=== PATIENT | female | born 1945 ===

== ENCOUNTER → 2023-09-20 12:19 | Outpatient (REF) | payer MEDICARE, OTHER, SELFPAY ==
[2023-09-20 13:00] LABS: % Basophils 0.5 % (0-2); % Eosinophils 2.6 % (0-6); % Immature Granulocytes 0.3 % (0-0.5); % Lymphocytes 23.3 % (20.5-51.1); % Monocytes 8.9 % (1.7-9.3); % Neutrophils 64.4 % (42.2-75.2); Absolute Eosinophils 0.2 10^3/uL (0-0.7); Absolute Lymphocytes 1.3 10^3/uL (1.2-3.4); Absolute Monocytes 0.5 10^3/uL (0.1-0.6); Absolute Neutrophils 3.7 10^3/uL (1.4-6.5); Hematocrit 34.1 % (37.0-47.0); Hemoglobin 11.2 g/dL (12.0-16.0); Mean Corp Hgb Conc. 32.8 g/dL (33.0-37.0); Mean Corpuscular Hgb 27.7 pg (27.0-31.0); Mean Corpuscular Volume 84.2 fL (81.0-99.0); Mean Platelet Volume 11.5 fL (7.4-10.4); Nucleated Red Blood Cells % 0 %; Platelet Count 191 10^3/uL (130-400); Red Blood Cell Count 4.05 10^6/uL (4.20-5.40); Red Cell Dist. Width 14.8 % (11.5-14.5); White Blood Cell Count 5.7 10^3/uL (4.8-10.8)
[2023-09-20 13:15] LABS: ALT (SGPT) 10 U/L (0-35); AST (SGOT) 17 U/L (14-36); Albumin 2.9 g/dl (3.5-5.0); Alkaline Phosphatase 81 U/L (38-126); Blood Urea Nitrogen 27 mg/dl (7-17); Calcium 8.9 mg/dl (8.4-10.2); Carbon Dioxide 28 mmol/L (22-30); Chloride 99 mmol/L (98-107); Glucose 296 mg/dl (70-99); HDL Cholesterol 48 mg/dl; LDL Cholesterol, Calculated 116 mg/dl; Potassium 4.1 mmol/L (3.5-5.1); Sodium 135 mmol/L (135-145); Total Bilirubin 0.4 mg/dl (0.2-1.3); Total Cholesterol 190 mg/dl (50-199); Total Protein 5.2 g/dl (6.3-8.2); Triglyceride 134 mg/dl (10-149); Very Low Density Lipoprotein 26 mg/dl (0-30); eGFR > 60.00
[2023-09-20 14:29] LABS: Glycohemoglobin (HgbA1c) 8.2 % (4.0-5.6)
== END ==
LOC: OLABN 12:19
PROVIDERS: ATTENDING PHYSICIAN Student in an Organized Health Care Education/Training Program
DX: I35.0 Nonrheumatic aortic (valve) stenosis (principal); E11.9 Type 2 diabetes mellitus without complications; E78.5 Hyperlipidemia, unspecified
CPT/HCPCS: 36415; 80053; 80061; 83036; 85025

== ENCOUNTER → 2023-10-01 12:36 | Outpatient (REF) | payer MEDICARE, OTHER, SELFPAY ==
[2023-10-01 13:01] LABS: Urine Albumin Trace (Neg - Trace); Urine Bilirubin Negative (Negative); Urine Character Slightly Cloudy (Clear); Urine Color Yellow; Urine Glucose 3+ (Negative); Urine Ketone Negative (Negative); Urine Leukocyte 2+ (Negative); Urine Nitrite Positive (Negative); Urine Occult Blood 1+ (Negative); Urine Urobilinogen Negative (Neg - 1+)
[2023-10-01 13:13] LABS: Urine Bacteria Moderate (Negative); Urine Red Blood Cell 0-2 /HPF (0-2); Urine White Cell 50-60 /HPF (0-5)
== END ==
LOC: OLABN 12:36
PROVIDERS: ATTENDING PHYSICIAN Student in an Organized Health Care Education/Training Program
DX: R82.90 Unspecified abnormal findings in urine (principal)
CPT/HCPCS: 81003; 81015; 87077; 87086; 87186

== ENCOUNTER → 2023-10-14 09:17 | Outpatient (REF) | payer MEDICARE, OTHER, SELFPAY ==
[2023-10-14 10:26] LABS: Urine Albumin Trace (Neg - Trace); Urine Bilirubin Negative (Negative); Urine Character Slightly Cloudy (Clear); Urine Color Yellow; Urine Glucose 3+ (Negative); Urine Ketone Negative (Negative); Urine Leukocyte 2+ (Negative); Urine Nitrite Negative (Negative); Urine Occult Blood 2+ (Negative); Urine Urobilinogen Negative (Neg - 1+)
[2023-10-14 10:45] LABS: Urine Bacteria Few (Negative); Urine White Cell 40-50 /HPF (0-5)
== END ==
LOC: OLABN 09:17
PROVIDERS: ATTENDING PHYSICIAN Student in an Organized Health Care Education/Training Program
DX: R82.90 Unspecified abnormal findings in urine (principal)
CPT/HCPCS: 81003; 81015; 87077; 87086; 87186

== ENCOUNTER → 2023-10-21 12:44 | Outpatient (REF) | payer MEDICARE, OTHER, SELFPAY ==
[2023-10-21 13:49] LABS: % Basophils 1.1 % (0-2); % Eosinophils 2.5 % (0-6); % Immature Granulocytes 0.4 % (0-0.5); % Lymphocytes 26.4 % (20.5-51.1); % Monocytes 15.9 % (1.7-9.3); % Neutrophils 53.7 % (42.2-75.2); Absolute Basophils 0.1 10^3/uL (0-0.2); Absolute Eosinophils 0.1 10^3/uL (0-0.7); Absolute Lymphocytes 1.3 10^3/uL (1.2-3.4); Absolute Monocytes 0.8 10^3/uL (0.1-0.6); Absolute Neutrophils 2.5 10^3/uL (1.4-6.5); Hematocrit 35.3 % (37.0-47.0); Hemoglobin 11.8 g/dL (12.0-16.0); Mean Corp Hgb Conc. 33.4 g/dL (33.0-37.0); Mean Corpuscular Hgb 27.4 pg (27.0-31.0); Mean Corpuscular Volume 81.9 fL (81.0-99.0); Mean Platelet Volume 11.3 fL (7.4-10.4); Nucleated Red Blood Cells % 0 %; Platelet Count 253 10^3/uL (130-400); Red Blood Cell Count 4.31 10^6/uL (4.20-5.40); Red Cell Dist. Width 14.9 % (11.5-14.5); White Blood Cell Count 4.7 10^3/uL (4.8-10.8)
[2023-10-21 14:27] LABS: Blood Urea Nitrogen 18 mg/dl (7-17); Calcium 8.6 mg/dl (8.4-10.2); Carbon Dioxide 25 mmol/L (22-30); Chloride 98 mmol/L (98-107); Glucose 384 mg/dl (70-99); Potassium 3.8 mmol/L (3.5-5.1); Sodium 128 mmol/L (135-145); eGFR > 60.00
== END ==
LOC: OLABN 12:44
PROVIDERS: ATTENDING PHYSICIAN Student in an Organized Health Care Education/Training Program
DX: I48.0 Paroxysmal atrial fibrillation (principal); N18.2 Chronic kidney disease, stage 2 (mild)
CPT/HCPCS: 36415; 80048; 85025

== ENCOUNTER → 2023-11-08 09:03 | Outpatient (REF) | payer MEDICARE, OTHER, SELFPAY ==
[2023-11-08 10:42] LABS: Blood Urea Nitrogen 19 mg/dl (7-17); Calcium 9.2 mg/dl (8.4-10.2); Carbon Dioxide 23 mmol/L (22-30); Chloride 106 mmol/L (98-107); Glucose 172 mg/dl (70-99); Potassium 4.2 mmol/L (3.5-5.1); Sodium 134 mmol/L (135-145); eGFR > 60.00
== END ==
LOC: OLABN 09:03
PROVIDERS: ATTENDING PHYSICIAN Student in an Organized Health Care Education/Training Program
DX: E87.1 Hypo-osmolality and hyponatremia (principal)
CPT/HCPCS: 36415; 80048

== ENCOUNTER → 2023-12-20 11:40 | Outpatient (REF) | payer MEDICARE, OTHER, SELFPAY ==
[2023-12-20 12:34] LABS: Blood Urea Nitrogen 12 mg/dl (7-17); Calcium 8.3 mg/dl (8.4-10.2); Carbon Dioxide 23 mmol/L (22-30); Chloride 104 mmol/L (98-107); Glucose 179 mg/dl (70-99); Potassium 3.1 mmol/L (3.5-5.1); Sodium 134 mmol/L (135-145); eGFR > 60.00
[2023-12-20 12:51] LABS: Glycohemoglobin (HgbA1c) 8.1 % (4.0-5.6)
== END ==
LOC: OLABN 11:40
PROVIDERS: ATTENDING PHYSICIAN Student in an Organized Health Care Education/Training Program
DX: E78.1 Pure hyperglyceridemia (principal); E11.40 Type 2 diabetes mellitus with diabetic neuropathy, unspecified
CPT/HCPCS: 36415; 80048; 83036

== ENCOUNTER → 2023-12-27 11:55 | Outpatient (REF) | payer MEDICARE, OTHER, SELFPAY ==
[2023-12-27 13:11] LABS: Blood Urea Nitrogen 19 mg/dl (7-17); Calcium 8.9 mg/dl (8.4-10.2); Carbon Dioxide 20 mmol/L (22-30); Chloride 106 mmol/L (98-107); Glucose 147 mg/dl (70-99); Potassium 4.1 mmol/L (3.5-5.1); Sodium 139 mmol/L (135-145); eGFR > 60.00
== END ==
LOC: OLABN 11:55
PROVIDERS: ATTENDING PHYSICIAN Student in an Organized Health Care Education/Training Program
DX: E87.1 Hypo-osmolality and hyponatremia (principal)
CPT/HCPCS: 36415; 80048

== ENCOUNTER → 2024-03-06 10:50 | Outpatient (REF) | payer MEDICARE, OTHER, SELFPAY ==
[2024-03-06 12:23] LABS: ALT (SGPT) 18 U/L (0-35); AST (SGOT) 56 U/L (14-36); Albumin 2.6 g/dl (3.5-5.0); Alkaline Phosphatase 240 U/L (38-126); Blood Urea Nitrogen 26 mg/dl (7-17); Calcium 8.7 mg/dl (8.4-10.2); Carbon Dioxide 16 mmol/L (22-30); Chloride 110 mmol/L (98-107); Glucose 103 mg/dl (70-99); Potassium 4.9 mmol/L (3.5-5.1); Sodium 135 mmol/L (135-145); Total Bilirubin 0.8 mg/dl (0.2-1.3); Total Protein 5.4 g/dl (6.3-8.2); eGFR > 60.00
== END ==
LOC: OLABN 10:50
PROVIDERS: ATTENDING PHYSICIAN Student in an Organized Health Care Education/Training Program
DX: Z51.81 Encounter for therapeutic drug level monitoring (principal)
CPT/HCPCS: 36415; 80053

== ENCOUNTER → 2024-03-13 13:13 | Outpatient (REF) | payer MEDICARE, OTHER, SELFPAY ==
[2024-03-13 14:12] LABS: ALT (SGPT) 20 U/L (0-35); AST (SGOT) 55 U/L (14-36); Albumin 2.7 g/dl (3.5-5.0); Alkaline Phosphatase 243 U/L (38-126); Blood Urea Nitrogen 21 mg/dl (7-17); Calcium 8.7 mg/dl (8.4-10.2); Carbon Dioxide 16 mmol/L (22-30); Chloride 110 mmol/L (98-107); Glucose 133 mg/dl (70-99); Potassium 4.4 mmol/L (3.5-5.1); Sodium 134 mmol/L (135-145); Total Protein 5.5 g/dl (6.3-8.2); eGFR > 60.00
== END ==
LOC: OLABN 13:13
PROVIDERS: ATTENDING PHYSICIAN Student in an Organized Health Care Education/Training Program
DX: Z51.81 Encounter for therapeutic drug level monitoring (principal)
CPT/HCPCS: 36415; 80053

== ENCOUNTER → 2024-03-17 13:00 | Outpatient (REF) | payer MEDICARE, OTHER, SELFPAY ==
[2024-03-17 14:09] LABS: ALT (SGPT) 17 U/L (0-35); AST (SGOT) 48 U/L (14-36); Albumin 2.6 g/dl (3.5-5.0); Alkaline Phosphatase 191 U/L (38-126); Direct Bilirubin 0.4 mg/dl (0.0-0.4); GGTP 278 U/L (12-43); Total Bilirubin 0.8 mg/dl (0.2-1.3); Total Protein 5.3 g/dl (6.3-8.2)
== END ==
LOC: OLABN 13:00
PROVIDERS: ATTENDING PHYSICIAN Student in an Organized Health Care Education/Training Program
DX: R74.8 Abnormal levels of other serum enzymes (principal); R74.01 Elevation of levels of liver transaminase levels
CPT/HCPCS: 36415; 80076; 82977

== ENCOUNTER 2024-03-20 20:25 | Inpatient (IN) | payer MEDICARE, OTHER, SELFPAY ==
[2024-03-20] VITALS (8 sets, daily range): BP systolic 98–134; BP diastolic 52–73; BMI 21.0; BMI 21.7
[2024-03-20 14:46] LABS: % Basophils 0.7 % (0-2); % Eosinophils 0.7 % (0-6); % Immature Granulocytes 0.5 % (0-0.5); % Lymphocytes 10.4 % (20.5-51.1); % Monocytes 10.6 % (1.7-9.3); % Neutrophils 77.1 % (42.2-75.2); Absolute Lymphocytes 0.6 10^3/uL (1.2-3.4); Absolute Monocytes 0.6 10^3/uL (0.1-0.6); Absolute Neutrophils 4.5 10^3/uL (1.4-6.5); Hematocrit 41.9 % (37.0-47.0); Hemoglobin 13.4 g/dL (12.0-16.0); Mean Corpuscular Hgb 28.8 pg (27.0-31.0); Mean Corpuscular Volume 90.1 fL (81.0-99.0); Mean Platelet Volume 9.8 fL (7.4-10.4); Nucleated Red Blood Cells % 0 %; Platelet Count 218 10^3/uL (130-400); Red Blood Cell Count 4.65 10^6/uL (4.20-5.40); Red Cell Dist. Width 18.4 % (11.5-14.5); White Blood Cell Count 5.8 10^3/uL (4.8-10.8)
[2024-03-20 15:08] LABS: ALT (SGPT) 17 U/L (0-35); AST (SGOT) 51 U/L (14-36); Albumin 2.8 g/dl (3.5-5.0); Alkaline Phosphatase 181 U/L (38-126); Blood Urea Nitrogen 23 mg/dl (7-17); Calcium 8.4 mg/dl (8.4-10.2); Carbon Dioxide 18 mmol/L (22-30); Chloride 109 mmol/L (98-107); Estimated Creatinine Clearance 42 ml/min; Glucose 217 mg/dl (70-99); Potassium 4.4 mmol/L (3.5-5.1); Sodium 136 mmol/L (135-145); Total Bilirubin 1.2 mg/dl (0.2-1.3); Total Protein 5.9 g/dl (6.3-8.2); eGFR > 60.00
--- NOTE | 2024-03-20 16:39 | ED.GENMED ---
History of Present Illness
General
Chief Complaint: Abdominal Symptoms
Source: patient, family and penitentiary
Exam Limitations: none
Time Seen by Provider: 03/20/24 16:00
Nursing documentation reviewed up to this point in time: agreed with
History of Present Illness
History of Present Illness:
Patient to ED with complaint of abdominal pain (chronic), abdominal swelling. Daughter states swelling increased over the weekend. SHe had an abdominal US today at [facility] which reveals ascites, possible liver mass. Sent to ED for eval.
Past History
Past History
ED Past Medical History: Arrthythmia (afib)
ED Past Surgical History: Appendectomy, Cardiac (loop recorder, watchman) and Other (IVC filter)
Review of Systems
Review of Systems
Allergies reviewed?: Yes
All Other Systems: ROS reviewed and negative except as documented in HPI and ROS
Constitutional: Reports fatigue
EENT: Reports no symptoms
Respiratory: Reports no symptoms
Cardiac: Reports no symptoms
ABD/GI: Reports abdominal pain
: Reports no symptoms
Musculoskeletal: Reports no symptoms
Skin: Reports no symptoms
Neurological: Reports weakness
Psychiatric: Reports no symptoms
Phy Exam
General Physical Exam
General Presentation: mild distress
General age: appears older than age
General Skin: warm and dry
General Habitus: failure to thrive and frail
General Mental: alert
Cardiovascular Exam
Cardiovascular Exam: regular rate/rhythm
Pulmonary Exam
Pulmonary Exam: lungs clear and no respiratory distress
Gastrointestinal Exam
Gastrointestinal Exam: normal bowel sounds, soft, no pulsatile mass, no cva tenderness and ascites
Palpation: generalized: Mild tenderness
Musculoskeletal Exam
Musculoskeletal Exam: full ROM and neuro vasc intact
Skin Exam
Skin Exam: normal color and warm/dry
Psychiatric Exam
Psychiatric Exam: normal mood/affect
Course
Orders/Labs/Results
Orders:
Orders
03/20/24 14:20
Electrocardiogram (*1) Urgent
Reason for Study: Chest Pain
Cardiac Monitoring- Treatment ONCE
EKG- Treatment ONCE
IV Insert/Care/Rem.- Treatment PRN
03/20/24 14:42
Complete Blood Count/With Diff Urgent
Comprehensive Metabolic Panel Urgent
03/20/24 16:35
CT Abd/pelvis W Iv Cont Urgent
Comment:
Reason For Exam: abdominal pain, swelling
Urinalysis Reflex To Culture Urgent
03/20/24 19:02
Admit/Transfer Patient As Directed
Co-Sign Provider:
Level of Care: Inpatient admission
Assign to:: Medical/Surgical
Physician / Group: aliyah
Diagnosis: metastatic ascites
Reason for Hospitalization: metastatic ascites
Expected length of stay greater than two midnights?: Yes
ELOS- Estimated Length of Stay in days: 2
I certify the patient meets the requirements for IP care: Yes
PRN Pain Medication Management As Directed
May give lesser potent ordered pain med per pt: Yes
preference::
Protocol:: Medication orders for pain may be administered in a
manner that supports deferring to patient preference
when the pt is:
- Requesting an ordered lesser potent pain medication.
Least to most potent pain medications are defined
as: acetaminophen < NSAID < tramadol < opioids
(morphine, oxycodone, hydromorphone).
- Requesting a lesser dose of the same medication IF
ORDERED.
- Requesting a less intrusive route of administration
if both routes are prescribed by the provider (PO <
IV).
03/20/24 19:03
Code Status As Directed
Resuscitation Status: Do not resuscitate
Reached after discussion with pt or family/Healthcare POA: Yes
DNR Bracelet Application ONCE
Abnormal Lab Results
03/20/24
14:42
MCHC 32.0 L g/dL
(33.0-37.0)
RDW 18.4 H %
(11.5-14.5)
Absolute Lymphs (auto) 0.6 L 10^3/uL
(1.2-3.4)
Neutrophils % 77.1 H %
(42.2-75.2)
Lymphocytes % 10.4 L %
(20.5-51.1)
Monocytes % 10.6 H %
(1.7-9.3)
Chloride 109 H mmol/L
(98-107)
Carbon Dioxide 18 L mmol/L
(22-30)
BUN 23 H mg/dl
(7-17)
Glucose 217 H mg/dl
(70-99)
AST 51 H U/L
(14-36)
Alkaline Phosphatase 181 H U/L
(38-126)
Total Protein 5.9 L g/dl
(6.3-8.2)
Albumin 2.8 L g/dl
(3.5-5.0)
03/20/24 14:42
03/20/24 14:42
Vital Signs
Initial and Last Documented VS:
Initial Vital Signs
Temp Pulse Resp BP Pulse Ox
99.4 F 89 14 121/69 97
03/20/24 14:25 03/20/24 14:25 03/20/24 14:25 03/20/24 14:25 03/20/24 14:25
Last Documented Vital Signs
Temp Pulse Resp BP Pulse Ox
99.4 F 88 17 111/59 98
03/20/24 14:25 03/20/24 18:15 03/20/24 18:15 03/20/24 18:00 03/20/24 18:15
*Radiology
Radiology exam reviewed: radiology read reviewed
*Pulse Oximetry
Patient hypoxic: no
*Critical Care Note
Total Time (30-74mins, 75-104mins- exclusive of procedures): Not Applicable
ED Attending Note
-
Portions of this chart may have been created with voice recognition software.� Occasional wrong word or��sound alike� substitutions may have occurred due to the inherent limitations of voice recognition software.
Discharge Plan
Departure
Patient Disposition: Admit
Date of Disposition: 03/20/24
Time of Disposition: 18:26
Presentation/result/management discussed w/ accepting MD/DO: Hospitalist
Patient with high blood pressure during this ER visit?: No
Condition: Fair
Covid-19: Not Applicable
Discharge Problem:
Failure to thrive, Abdominal ascites, Liver mass
Prescriptions:
No Action
acetaminophen 325 mg Tablet
650 mg PO Q4HPRN PRN (Reason: mild pain/fever >100.4)
lidocaine 4 % Adhesive Patch,Medicated
1 patch TOPICAL DAILY
sennosides-docusate sodium 8.6-50 mg Tablet
1 tab-cap PO DAILY
magnesium hydroxide [Milk of Magnesia] 400 mg/5 mL Suspension
400 mg PO HSPRN PRN (Reason: constipation)
bisacodyl 10 mg Suppository
10 mg WI DAILYPRN PRN (Reason: 3 days no bm, mom ineffective)
gabapentin 300 mg Capsule
300 mg PO HS
mirtazapine 15 mg Tablet
15 mg PO HS
simethicone 80 mg Tablet,Chewable
80 mg PO Q8HPRN PRN (Reason: gas)
sodium chloride 1,000 mg Tablet,Soluble
1,000 mg PO DAILY
Referrals:
UNKNOWN - PT DOES,NOT KNOW [Family Provider] -
Interventions
Interventions:
*Risk Screen - Suicide Last Done: 03/20/24 14:22
*General Assessment Last Done: 03/20/24 14:22
*Neglect/Abuse Screening Last Done: 03/20/24 14:22
ED- Fall Risk Assessment Last Done: 03/20/24 14:22
*ED COVID-19 Vaccine History Last Done: 03/20/24 14:22
RV-Aazsdj-Ifmqcxbcgj Assessment Last Done: 03/20/24 15:00
Discharge Date and Time
Print Language: LEBANESE
--- NOTE | 2024-03-20 17:08 | EDRN ---
CT called and said IV #22 in L wrist is okay for CT of abd/pelvis as it is not and CT angio.
--- NOTE | 2024-03-20 19:05 | HPS.HSE ---
Family Physician
-
Family Physician: NOT KNOW UNKNOWN - PT DOES
Chief Complaint
-
abdominal pain
History of Present Illness
78-year-old female past medical history of paroxysmal atrial fibrillation status post Watchman/loop recorder not on anticoagulation, IVC filter, breast cancer 2016 status post lumpectomy, chemotherapy/radiation, ischemic/hemorrhagic CVAs, type 2
diabetes, CKD, anxiety/depression, hyponatremia, presenting with abdominal discomfort for the past 2 weeks as well as increased abdominal distention since yesterday. No nausea or vomiting. No diarrhea. No fevers or chills. She has been having
intermittent chest pains. Denies shortness of breath.
Denies smoking alcohol use.
Mother had breast cancer.
Medical History
Past Medical History
Past Medical History: Reports Other (paroxysmal atrial fibrillation status post Watchman/loop recorder not on anticoagulation, IVC filter, breast cancer 2016 status post lumpectomy, chemotherapy/radiation, ischemic/hemorrhagic CVAs, type 2 diabetes,
CKD, anxiety/depression, hyponatremia)
Past Surgical History: Reports Appendectomy and Other (IVC filter, loop recorder )
Social History
Tobacco: Non-smoker
Alcohol: None
Drug: None
Family History
Family History: Not pertinent
Allergies / Home Medications
Allergies reflects when Allergies were last updated in [facility].
Home Medications with original date entered in [facility]
Allergy/Medication List:
Allergies
Allergy/AdvReac Type Severity Reaction Status Date / Time
canagliflozin Allergy Unknown Verified 03/20/24 14:21
Home Medications
acetaminophen 325 mg tablet 650 mg PO Q4HPRN PRN mild pain/fever >100.4 03/20/24
bisacodyl 10 mg rectal suppository 10 mg NE DAILYPRN PRN 3 days no bm, mom ineffective 03/20/24
gabapentin 300 mg capsule 300 mg PO HS 03/20/24
lidocaine 4 % topical patch 1 patch topical DAILY lower back 03/20/24
magnesium hydroxide 400 mg/5 mL oral suspension (Milk of Magnesia) 400 mg PO HSPRN PRN constipation 03/20/24
mirtazapine 15 mg tablet 15 mg PO HS 03/20/24
sennosides 8.6 mg-docusate sodium 50 mg tablet 1 tab-cap PO DAILY 03/20/24
simethicone 80 mg chewable tablet 80 mg PO Q8HPRN PRN gas 03/20/24
sodium chloride 1,000 mg soluble tablet 1,000 mg PO DAILY 03/20/24
Review of Systems
-
History Source: Patient
A 12 point ROS was completed and negative except as noted: Yes
Constitutional: Reports No Symptoms
EENT: Reports No Symptoms
Respiratory: Reports No Symptoms
Cardiac: Reports No Symptoms
Abdomen/GI: Reports See HPI
: Reports No Symptoms
Musculoskeletal: Reports No Symptoms
Skin: Reports No Symptoms
Neurological: Reports No Symptoms
Endocrine: Reports No Symptoms
Hematologic/Lymphatic: Reports No Symptoms
Psych: Reports No Symptoms
Physical Exam
Vital Signs
Vital Signs
Temp Pulse Resp BP Pulse Ox
99.4 F 88 17 111/59 98
03/20/24 14:25 03/20/24 18:15 03/20/24 18:15 03/20/24 18:00 03/20/24 18:15
Physical Exam
General: Well Developed, Well Nourished and No Apparent Distress
HEENT: NormoCephalic, Moist mucous membranes and Atraumatic
Respiratory: Clear
Cardiac: S1/S2 and Regular Rhythm; No Murmur or Rub
GI: Soft, Normal Bowel Sounds, Tender and Distended; No Organomegaly
Rectal: Deferred by Provider
Musculoskeletal: No Clubbing, No Cyanosis and No Edema
Skin: No Rash
Neuro: Nonfocal/grossly intact
Laboratory Results
-
03/20/24 14:42
03/20/24 14:42
Laboratory Results
Total Bilirubin 1.2 mg/dl (0.2-1.3) 03/20/24 14:42
AST 51 U/L (14-36) H 03/20/24 14:42
ALT 17 U/L (0-35) 03/20/24 14:42
Alkaline Phosphatase 181 U/L (38-126) H 03/20/24 14:42
Data Reviewed
-
Lab Data: Labs Reviewed by me
Old Records: Reviewed
Impression/Plan
-
IMPRESSION:
PLAN:
# Symptomatic ascites secondary to newly discovered liver malignancy versus metastases
-CT abdomen pelvis shows innumerable scattered low-attenuation lesions throughout the liver suspicious for malignancy possibly metastatic
-IR consulted for paracentesis
-GI consulted
# Splenic infarct versus mass
-Possibly infarct from atrial fibrillation since not on anticoagulation
Paroxysmal atrial fibrillation status post watchman/loop recorder
IVC filter
Breast cancer 2016 status post lumpectomy/chemotherapy/radiation
History of ischemic/hemorrhagic CVAs
Type 2 diabetes
-Insulin sliding scale
CKD
-Renal function at baseline
Anxiety/depression
-Continue mirtazapine
Hyponatremia
-Continue sodium chloride tablet
DNR/DNI
DVT prophylaxis- heparin
Regular diet
--- NOTE | 2024-03-20 19:28 | EDRN ---
Report received, patient given water, family at bedside waiting on bed
--- NOTE | 2024-03-20 20:27 | EDRN ---
Report sent to the floor
--- NOTE | 2024-03-20 21:15 | PTCARENOTE ---
Patient arrived to unit via stretcher accompanied by ED PCT. Transferred from stretcher to bed without difficulty. Nursing assessment completed at this time, see documentation. Oriented to facility and room, call wong within reach and instructed on
use, bed alarmed. VSS, continue with current care plan.
[2024-03-20 21:18] LABS: Glucose - Point of Care 126 mg/dl (70-99)
[2024-03-20] MEDS: REMERON 15 MG PO (21:49)
[2024-03-20] MEDS: NEURONTIN 300 MG PO (21:49)
[2024-03-20] MEDS: HEPARIN 5000 UNITS SC (21:49)
[2024-03-21 07:42] LABS: Glucose - Point of Care 116 mg/dl (70-99)
--- NOTE | 2024-03-21 07:42 | W.PN.HOSP.TC ---
Today's Communication/Plan
-
see bold
Assessment / Plan
Assessment / Plan
Gen: NAD, Awake and alert, appears chronically ill
Eyes: EOMI, PERRLA, no scleral icterus.
Neck: supple.
CV: RRR, +S1/S2, no m/r/g.
Resp: CTAB, no rales, wheezes, or rhonchi.
Abd: +BS, soft, mild TTP, mod distention with ascites
Skin: No rashes.
Neuro: CN 2-12 intact, non-focal.
Psych: Normal mood and affect.
Symptomatic ascites secondary to newly discovered liver malignancy versus metastases:
-CT abdomen pelvis shows innumerable scattered low-attenuation lesions throughout the liver suspicious for malignancy possibly metastatic
-IR consulted for paracentesis
-GI/ONC consulted
Splenic infarct versus mass:
-Possibly infarct from atrial fibrillation since not on anticoagulation
Other problems:
Paroxysmal atrial fibrillation status post watchman/loop recorder
IVC filter
Breast cancer 2016 status post lumpectomy/chemotherapy/radiation
History of ischemic/hemorrhagic CVAs
DM2: SSI/accuchecks
Anxiety/depression: Continue mirtazapine
Hyponatremia: cont salt tabs
DNR/DNI/heparin
Anticipated Discharge: Within 24 hours
Subjective/Interval History
-
Date of Service: March 21, 2024
Objective Data
-
Labs:
Laboratory Results
03/21/24
07:39
WBC Pending
Hgb Pending
Hct Pending
Plt Count Pending
Sodium Pending
Potassium Pending
Chloride Pending
Carbon Dioxide Pending
BUN Pending
Creatinine Pending
Glucose Pending
Calcium Pending
Total Bilirubin Pending
AST Pending
ALT Pending
Alkaline Phosphatase Pending
Vital Signs:
Vital Signs
Temp Pulse Resp BP Pulse Ox
98.4 F 95 18 134/73 96
03/20/24 23:20 03/20/24 23:20 03/20/24 23:20 03/20/24 23:20 03/20/24 23:20
[2024-03-21 07:56] VITALS: BP 123/74
[2024-03-21] MEDS: HEPARIN 5000 UNITS SC ×2 (07:59→21:05)
[2024-03-21] MEDS: SENOKOT-S 1 TABLET PO (07:59)
[2024-03-21] MEDS: SODIUM CHLORIDE 1 GRAM PO (07:59)
[2024-03-21] MEDS: NOVOLOG FLEXPEN-LOW RESISTANCE SC ×2 (07:59→17:05)
[2024-03-21 08:00] LABS: % Basophils 0.8 % (0-2); % Eosinophils 1.8 % (0-6); % Immature Granulocytes 0.5 % (0-0.5); % Lymphocytes 14.1 % (20.5-51.1); % Monocytes 12.3 % (1.7-9.3); % Neutrophils 70.5 % (42.2-75.2); Absolute Basophils 0.1 10^3/uL (0-0.2); Absolute Eosinophils 0.1 10^3/uL (0-0.7); Absolute Lymphocytes 0.9 10^3/uL (1.2-3.4); Absolute Monocytes 0.8 10^3/uL (0.1-0.6); Absolute Neutrophils 4.3 10^3/uL (1.4-6.5); Hematocrit 38.5 % (37.0-47.0); Hemoglobin 12.7 g/dL (12.0-16.0); Mean Corpuscular Hgb 29.3 pg (27.0-31.0); Mean Corpuscular Volume 88.7 fL (81.0-99.0); Mean Platelet Volume 9.5 fL (7.4-10.4); Nucleated Red Blood Cells % 0 %; Platelet Count 186 10^3/uL (130-400); Red Blood Cell Count 4.34 10^6/uL (4.20-5.40); Red Cell Dist. Width 17.8 % (11.5-14.5); White Blood Cell Count 6.2 10^3/uL (4.8-10.8)
[2024-03-21 08:30] LABS: Glycohemoglobin (HgbA1c) 5.8 % (4.0-5.6)
[2024-03-21 08:33] LABS: AST (SGOT) 46 U/L (14-36); Albumin 2.6 g/dl (3.5-5.0); Blood Urea Nitrogen 22 mg/dl (7-17); Calcium 8.5 mg/dl (8.4-10.2); Carbon Dioxide 18 mmol/L (22-30); Estimated Creatinine Clearance 41 ml/min; Glucose 117 mg/dl (70-99); Potassium 4.2 mmol/L (3.5-5.1); Total Bilirubin 1.2 mg/dl (0.2-1.3); Total Protein 5.4 g/dl (6.3-8.2); eGFR > 60.00
[2024-03-21 08:42] LABS: ALT (SGPT) 14 U/L (0-35); Alkaline Phosphatase 174 U/L (38-126); Chloride 112 mmol/L (98-107); Sodium 135 mmol/L (135-145)
--- NOTE | 2024-03-21 09:03 | CON.ONC ---
Impression
Impression
Liver masses, ascites
h/o stage IIIB left breast cancer, 2016, ER/IN neg, Her2+
Plan
Plan
Clinical picture could be consistent with metastatic breast cancer with h/o advanced HR neg, Her2 pos breast cancer in 2016
Agree w/ paracentesis, await fluid cytology
Will check tumor markers, CA27-29 for breast cancer, CEA, CA19-9, AFP for GI cancers
She's unlikely to be a candidate for any treatment
d/w daughter, Johana, over the phone. Hospice likely the most appropriate. Will continue conversations with family/patient.
Patient History
History of Present Illness
This is a 78yo F w/ h/o stage IIIB (cT4) left breast cancer (ER/IN negative, Her2+), treated with neoadjuvant taxane/herceptin in 2015, followed by lumpectomy and axillary node dissection, showing no residual invasive disease in the breast, but
microscopic disease in 6 of 9 nodes. She's been followed at [facility] ([place] office). last in 2020. She recently developed increasing abdominal distention, and underwent abd US at [facility], showing ascites and abnormal liver, so was sent to
the ER yesterday for evaluation. CT in the ER showed ascites and liver masses, c/w metastatic disease or primary liver malignancy.
She is a poor historian, thinks she's been here x1 week.
Per daughter, patient has been bedbound since June 2023. After undergoing Watchman procedure in May 2023, she had a ruptured appendix. Then to SNF and PS declined. She's very confused, per daughter. She's been telling daughter recently that she
wants to . Family has been considering hospice.
Past-Medical/Surgical History
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
SH - lives at [facility] [place],
FH - N/C
Patient Medication
�Medication �Instructions �Recorded �Confirmed �Last Taken �Type
acetaminophen 325 mg tablet 650 mg PO Q4HPRN PRN mild 03/20/24 03/20/24 Unknown History
pain/fever >100.4
bisacodyl 10 mg rectal suppository 10 mg IN DAILYPRN PRN 3 days no 03/20/24 03/20/24 Unknown History
bm, mom ineffective
gabapentin 300 mg capsule 300 mg PO HS 03/20/24 03/20/24 Unknown History
lidocaine 4 % topical patch 1 patch topical DAILY lower back 03/20/24 03/20/24 Unknown History
magnesium hydroxide 400 mg/5 mL 400 mg PO HSPRN PRN constipation 03/20/24 03/20/24 Unknown History
oral suspension (Milk of Magnesia)
mirtazapine 15 mg tablet 15 mg PO HS 03/20/24 03/20/24 Unknown History
sennosides 8.6 mg-docusate sodium 1 tab-cap PO DAILY 03/20/24 03/20/24 03/20/24 History
50 mg tablet
simethicone 80 mg chewable tablet 80 mg PO Q8HPRN PRN gas 03/20/24 03/20/24 Unknown History
sodium chloride 1,000 mg soluble 1,000 mg PO DAILY 03/20/24 03/20/24 03/20/24 History
tablet
Active Medications
Generic Name Dose Route Start Last Admin
Trade Name Freq PRN Reason Stop Dose Admin
Acetaminophen 650 mg 03/20/24 21:15
Acetaminophen 325 Mg Tablet PO 04/17/24 21:14
Q4HPRN PRN
mild pain/fever >100.4
Bisacodyl 10 mg 03/20/24 21:15
Bisacodyl 10 Mg Rectal Suppository RECTAL 04/17/24 21:14
DAILYPRN PRN
3 days no bm, mom ineffective
Dextrose 12.5 grams 08/05/24 21:15
Dextrose 50% (0.5 Grams/Ml) 50 Ml Syringe IV 04/17/24 21:14
[id number] PRN
hypoglycemia
Protocol
Gabapentin 300 mg 03/20/24 22:00 03/20/24 21:49
Gabapentin 300 Mg Capsule PO 04/17/24 21:59 300 mg
HS GLENROY Administration
Glucagon 1 mg 03/20/24 21:15
Glucagon 1 Mg Vial IM 04/17/24 21:14
PRN PRN
hypoglycemia
Protocol
Heparin Sodium 5,000 units 03/20/24 21:15 03/21/24 07:59
Heparin 5,000 Units/Ml 1 Ml Vial SC 04/17/24 21:14 5,000 units
Q12 GLENROY Administration
Hydromorphone HCl 0.5 mg 03/20/24 21:15
Hydromorphone 0.5 Mg/0.5 Ml Syringe IV 04/03/24 21:14
Q4HPRN PRN
severe pain
Insulin Aspart 0 units 03/21/24 07:30 03/21/24 07:59
Insulin Aspart Low Resistance 300 Units/3 Ml Pen.Injctr SC 04/18/24 07:29 Not Given
AC GLENROY
Protocol
Magnesium Hydroxide 5 ml 03/20/24 21:15
Milk Of Magnesia 30 Ml Cup PO 04/17/24 21:14
HSPRN PRN
constipation
Mirtazapine 15 mg 03/20/24 22:00 03/20/24 21:49
Mirtazapine 15 Mg Regular Release Tablet PO 04/17/24 21:59 15 mg
HS GLENROY Administration
Ondansetron HCl 4 mg 03/20/24 21:15
Ondansetron 4 Mg/2 Ml Vial IV 04/17/24 21:14
Q6HPRN PRN
nausea and vomiting
Senna/Docusate Sodium 1 tablet 03/21/24 08:00 03/21/24 07:59
Docusate W/Senna (Leni-Colace) Tablet PO 04/18/24 07:59 1 tablet
DAILY GLENROY Administration
Simethicone 80 mg 03/20/24 21:15
Simethicone 80 Mg Chewable Tablet PO 04/17/24 21:14
Q8HPRN PRN
gas
Sodium Chloride 1 gram 03/21/24 08:00 03/21/24 07:59
Sodium Chloride 1 Gram Tablet PO 04/18/24 07:59 1 gram
DAILY GLENROY Administration
Sodium Chloride 0 flush 03/20/24 22:00
Sodium Chloride 0.9% (Flush) Syringe IV 04/17/24 21:59
PER PROTOCOL GLENROY
Review of Systems
-
History Source: Patient and Records
All Other Systems: Not reviewed unless documented
Constitutional: Denies Weight Gain, Weight Loss or No Appetite
Respiratory: Denies Cough
GI: Reports Bloated; Denies Nausea, Vomiting, Constipated, Anorexia or Pain
Skin: Denies Itching or Rash
Physical Exam
-
General: Well Developed, Well Nourished and Conversant
HEENT: Moist Mucous Membranes; Negative Jaundice
Cardiology: Normal Sinus Rhythm
Pulmonary: Clear
GI: Soft and Distended
Musculoskeletal: No Clubbing, No Cyanosis and No Edema
Extremities: No C/C/E
Neurology: Non Focal and No Word Finding Difficulty
Skin: Warm and Dry
Hematologic / Lymphatic: No Lymphadenopathy
Psych: Negative Agitated or Anxious
Labs
Lab Results
WBC 6.2 10^3/uL (4.8-10.8) 03/21/24 07:39
RBC 4.34 10^6/uL (4.20-5.40) 03/21/24 07:39
Hgb 12.7 g/dL (12.0-16.0) 03/21/24 07:39
Hct 38.5 % (37.0-47.0) 03/21/24 07:39
MCV 88.7 fL (81.0-99.0) 03/21/24 07:39
MCH 29.3 pg (27.0-31.0) 03/21/24 07:39
MCHC 33.0 g/dL (33.0-37.0) 03/21/24 07:39
RDW 17.8 % (11.5-14.5) H 03/21/24 07:39
Plt Count 186 10^3/uL (130-400) 03/21/24 07:39
MPV 9.5 fL (7.4-10.4) 03/21/24 07:39
Abs Immat Gran (auto) 0.0 10^3/uL (0-0.05) 03/21/24 07:39
Absolute Neuts (auto) 4.3 10^3/uL (1.4-6.5) 03/21/24 07:39
Absolute Lymphs (auto) 0.9 10^3/uL (1.2-3.4) L 03/21/24 07:39
Absolute Monos (auto) 0.8 10^3/uL (0.1-0.6) H 03/21/24 07:39
Absolute Eos (auto) 0.1 10^3/uL (0-0.7) 03/21/24 07:39
Absolute Basos (auto) 0.1 10^3/uL (0-0.2) 03/21/24 07:39
Immature Gran % 0.5 % (0-0.5) 03/21/24 07:39
Neutrophils % 70.5 % (42.2-75.2) 03/21/24 07:39
Lymphocytes % 14.1 % (20.5-51.1) L 03/21/24 07:39
Monocytes % 12.3 % (1.7-9.3) H 03/21/24 07:39
Eosinophils % 1.8 % (0-6) 03/21/24 07:39
Basophils % 0.8 % (0-2) 03/21/24 07:39
Creatinine 0.9 mg/dL (0.6-1.0) 03/21/24 07:39
Vital Signs
Vital Signs
Temp Pulse Resp BP Pulse Ox
98.2 F 91 15 123/74 96
03/21/24 07:56 03/21/24 07:56 03/21/24 07:56 03/21/24 07:56 03/21/24 07:56
[2024-03-21 10:15] VITALS: BP 108/68; BP_SYST 89
[2024-03-21 10:55] VITALS: BP 104/56; BP_SYST 87
[2024-03-21 11:32] LABS: Glucose - Point of Care 163 mg/dl (70-99)
[2024-03-21 11:49] VITALS: BP 115/70
[2024-03-21 11:50] LABS: Body Fluid Albumin < 1.0 g/dl; Body Fluid Mononuclear 91.1 %; Body Fluid Polymorphonuclear 8.9 %; Body Fluid Protein < 2.0 g/dl; Body Fluid WBC 101 /CUMM
[2024-03-21 11:54] LABS: Body Fluid Second Tech SS
[2024-03-21] MEDS: NOVOLOG FLEXPEN-LOW RESISTANCE 1 UNITS SC (12:14)
--- NOTE | 2024-03-21 13:07 | CM ---
CM met with pt and family members at bedside
Pt is a LTC resident at [facility] (confirmed with Amy at [place]; bed hold)
Plan is to return when medically stable
Pt is bedbound. Total care. Feeds self with assist/set-up
Updates sent in [facility]
PCP - Dr Cameron
Pharm - [facility]
Plan - return to [facility] when medically stable
[2024-03-21 13:37] LABS: Body Fluid Amylase < 30 U/L; Body Fluid LDH < 90 U/L
[2024-03-21 15:02] LABS: CEA 585 ng/ml
[2024-03-21 16:17] VITALS: BP 113/64
[2024-03-21 17:01] LABS: Glucose - Point of Care 216 mg/dl (70-99)
[2024-03-21] MEDS: NEURONTIN 300 MG PO (21:05)
[2024-03-21] MEDS: REMERON 15 MG PO (21:05)
[2024-03-21 21:10] LABS: Glucose - Point of Care 204 mg/dl (70-99)
[2024-03-21 23:02] VITALS: BP 117/66
[2024-03-22 06:00] VITALS: BMI 21.3
--- NOTE | 2024-03-22 06:58 | W.PN.ONC2 ---
Today's Communication / Plan
-
Await cytology and rest of tumor markers.
Very high CEA very likely indicative of cancer but not specifically tells us what type.
Poor functional status likely precluded systemic palliative therapy.
Impression
Impression
Liver masses, ascites
h/o stage IIIB left breast cancer, 2016, ER/IA neg, Her2+
Plan
Plan
Clinical picture could be consistent with metastatic breast cancer with h/o advanced HR neg, Her2 pos breast cancer in 2016
Agree w/ paracentesis, await fluid cytology. Results still pending.
CEA = 585. Rest of tumor markers still pending...CA27-29 for breast cancer, CA19-9, AFP for GI cancers
She's unlikely to be a candidate for any treatment due to poor PS
d/w daughter, Johana, over the phone. Hospice likely the most appropriate. Will continue conversations with family/patient.
Subjective/Objective
Chief Complaint
ACS Heme Onc
Subjective
Lethargic but might just be sleepy (7 am)
Vital Signs:
Vital Signs
Temp Pulse Resp BP Pulse Ox
98.8 F 93 16 117/66 98
03/21/24 23:02 03/21/24 23:02 03/21/24 23:02 03/21/24 23:02 03/21/24 23:02
Lab Results:
Laboratory Data
WBC 6.2 10^3/uL (4.8-10.8) 03/21/24 07:39
Hgb 12.7 g/dL (12.0-16.0) 03/21/24 07:39
Plt Count 186 10^3/uL (130-400) 03/21/24 07:39
eGFR > 60.00 03/21/24 07:39
Physical Exam
PS = 4
Cardiology: S1 and S2
Pulmonary: Clear
[2024-03-22 07:00] VITALS: BP 108/67
[2024-03-22 08:18] LABS: Glucose - Point of Care 123 mg/dl (70-99)
[2024-03-22] MEDS: NOVOLOG FLEXPEN-LOW RESISTANCE SC ×3 (08:31→18:15)
[2024-03-22] MEDS: HEPARIN 5000 UNITS SC (09:07)
[2024-03-22] MEDS: SODIUM CHLORIDE 1 GRAM PO (09:07)
[2024-03-22] MEDS: SENOKOT-S 1 TABLET PO (09:07)
--- NOTE | 2024-03-22 09:23 | W.PN.HOSP.TC ---
Addendum entered and electronically signed by Jerry Henley MD 03/22/24 13:47:
Total time spent on d/c = 31 min. This included today's physical exam, progress note, review of laboratory and diagnostic data, preparation of discharge documents and prescriptions, and discussions about the pt's hospital course and discharge plan
with the patient and other medical pathologist involved in the patient's care.
Original Note:
Today's Communication/Plan
-
see bold
Assessment / Plan
Assessment / Plan
Gen: Remains NAD, Awake and alert, appears chronically ill
Eyes: EOMI, PERRLA, no scleral icterus.
Neck: supple.
CV: Remains RRR, +S1/S2, no m/r/g.
Resp: CTAB anteriorly, no rales, wheezes, or rhonchi.
Abd: +BS, soft, mild TTP, mod distention with ascites
Skin: No rashes.
Neuro: CN 2-12 intact, non-focal.
Psych: Normal mood and affect.
Symptomatic ascites secondary to newly discovered liver malignancy versus metastases:
-CT abdomen pelvis shows innumerable scattered low-attenuation lesions throughout the liver suspicious for malignancy possibly metastatic
-s/p paracentesis for 900cc on 03/21/24
-ONC saw in c/s
-family interested in hospice
Splenic infarct versus mass:
-Possibly infarct from atrial fibrillation since not on anticoagulation
Other problems:
Paroxysmal atrial fibrillation status post watchman/loop recorder
IVC filter
Breast cancer 2016 status post lumpectomy/chemotherapy/radiation
History of ischemic/hemorrhagic CVAs
DM2: SSI/accuchecks
Anxiety/depression: Continue mirtazapine
Hyponatremia: cont salt tabs
DNR/DNI/heparin
Anticipated Discharge: Within 24 hours
Subjective/Interval History
-
Date of Service: March 22, 2024
No new complaints.
Objective Data
-
Vital Signs:
Vital Signs
Temp Pulse Resp BP Pulse Ox
98.1 F 83 18 108/67 97
03/22/24 07:00 03/22/24 07:00 03/22/24 07:00 03/22/24 07:00 03/22/24 07:00
I&O
03/21/24 03/22/24 03/23/24
06:59 06:59 06:59
Intake Total 495 / 495
Balance 495 / 495
--- NOTE | 2024-03-22 11:53 | CM ---
Addendum entered by Bridgett Kim 03/22/24 15:29:
Transport at 1845 - jordana at [facility] aware
Daughter Johana notified
Addendum entered by Bridgett Kim 03/22/24 14:50:
Pt for discharge today
Called Jordana at [facility] aware and can accept
Called [facility] - spoke with Tammy - updated, pt for discharge today. Will check with management regarding signing on to hospice this PM
Daughter Johana made aware of return to [facility]
Discussed IMM with daughter
Plan - return to [facility]
R - [phone]
F - [phone]
Addendum entered by Bridgett Kim 03/22/24 12:58:
Received call from Tammy from [facility] - [phone]
Given phone number for pts daughter - plans to call daughter and NM - will return call to
Plan - anticipate return to [facility] with [facility]
Original Note:
Case management following for discharge planning
Consult for hospice
Spoke with daughter Johana - would like to have hospice for her mother
From [facility] - prefers [facility]
Confirmed with [facility] [phone] - can provide services at [facility]
Referral sent in [facility]
Plan - anticipate return to [facility] with [facility]
[2024-03-22 12:39] LABS: Glucose - Point of Care 123 mg/dl (70-99)
[2024-03-22 15:00] VITALS: BP 111/64
[2024-03-22 17:24] LABS: Glucose - Point of Care 106 mg/dl (70-99)
--- NOTE | 2024-03-22 19:25 | PTCARENOTE ---
IV site removed. Discharge instructions sent to [facility]. Report called to Tesha at [facility]. Pt transferred by [facility].
[2024-03-23 21:08] LABS: CA 19-9 31325 U/mL (<=35)
[2024-03-24 01:45] LABS: CA 27-29 274.4 U/mL (<=39.0)
--- NOTE | 2024-03-24 15:01 | W.DCSUMMARY ---
Discharge Summary
Discharge Data
Date of Admission: 03/20/24
Date of Discharge: 03/24/24
-
Pending Results: No
Hospital Course
Primary diagnoses:
Symptomatic ascites secondary to newly discovered liver malignancy versus metastases
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
Secondary diagnoses:
Paroxysmal atrial fibrillation status post watchman/loop recorder
h/o inferior vena cava filter
Breast cancer 2016 s/p lumpectomy/chemotherapy/radiation
History of ischemic/hemorrhagic cerebrovascular accident
Type 2 diabetes mellitus
Anxiety
Depression
Hyponatremia
Consults:
Oncology
Imaging:
CT A/P: Markedly limited study without oral contrast, paucity of intra-abdominal fat and elevation of right hemidiaphragm. Innumerable scattered low-attenuation lesions thought the liver some of which are confluent, suspicious for malignancy,
possibly metastatic. Cannot exclude multifocal hepatocellular carcinoma. Moderate volume ascites. Geographic focus of decreased attenuation laterally and anteriorly within the spleen most likely representing a splenic infarct. Splenic mass cannot be
excluded. Limited evaluation of gallbladder likely with stones. Subcentimeter low-attenuation renal lesions too small to characterize. Symmetric renal excretion. Mild irregular thickening of the wall of the unopacified urinary bladder. Markedly
limited evaluation of intestinal tract without oral contrast and with paucity of intra-abdominal fat with likely sigmoid diverticulosis. On the basis of this study, nonobstructing intestinal tract tumor cannot be excluded. Common bile duct at least
top normal in caliber.
Hospital course: 78-year-old female who presented with a chief complaint of abdominal pain as outlined in the H&P done on admission. CT scan of the abdomen pelvis above and notable for innumerable scattered low-attenuation lesions throughout the
liver suspicious for malignancy, possibly metastatic disease. The patient underwent paracentesis for 900 cc on March 21, 2024. Oncology is on consultation. The patient's family opted for hospice and the patient was discharged to hospice in
medically stable condition.
Discharge Plan
-
Patient Disposition: Shelter/SNF
Discharge Diagnosis/Procedures: Symptomatic ascites secondary to newly discovered liver malignancy versus metastases
Condition: Fair
Diet: No restrictions
Activity: With assistance
Driving Restrictions: No driving
Other Services: Hospice
Referrals:
UNKNOWN - PT DOES,NOT KNOW [Family Provider] - in less than 1 week
Prescriptions:
Continued
acetaminophen 325 mg Tablet
650 mg PO Q4HPRN PRN (Reason: mild pain/fever >100.4)
lidocaine 4 % Adhesive Patch,Medicated
1 patch TOPICAL DAILY
sennosides-docusate sodium 8.6-50 mg Tablet
1 tab-cap PO DAILY
magnesium hydroxide [Milk of Magnesia] 400 mg/5 mL Suspension
400 mg PO HSPRN PRN (Reason: constipation)
bisacodyl 10 mg Suppository
10 mg DE DAILYPRN PRN (Reason: 3 days no bm, mom ineffective)
gabapentin 300 mg Capsule
300 mg PO HS
mirtazapine 15 mg Tablet
15 mg PO HS
simethicone 80 mg Tablet,Chewable
80 mg PO Q8HPRN PRN (Reason: gas)
sodium chloride 1,000 mg Tablet,Soluble
1,000 mg PO DAILY
Discharge Orders:
Discharge Patient (As Directed); Ordered 03/22/24
Ordered By: Jerry Henley
Discharge Date and Time
Discharge Date/Time: 03/22/24 19:15
Print Language: GAMBIAN
== END 2024-03-22 19:15 | disposition hospice, inpatient (51) | DRG 436 ==
LOC: 3 WEST ACU 20:25
PROVIDERS: Radiology Diagnostic Radiology; ADMITTING PHYSICIAN Hospitalist; ATTENDING PHYSICIAN Internal Medicine; CONSULT PHYSICIAN Internal Medicine Hematology & Oncology; EMERGENCY PHYSICIAN Emergency Medicine
PROC: 0W9G3ZZ Drainage of Peritoneal Cavity, Percutaneous Approach (ICD-10-PCS; 2024-03-21)
DX: C22.9 Malignant neoplasm of liver, not specified as primary or secondary (principal); E87.1 Hypo-osmolality and hyponatremia; R18.0 Malignant ascites; Z66 Do not resuscitate; Z51.5 Encounter for palliative care; I48.0 Paroxysmal atrial fibrillation; E11.22 Type 2 diabetes mellitus with diabetic chronic kidney disease; I12.9 Hypertensive chronic kidney disease with stage 1 through stage 4 chronic kidney disease, or unspecified chronic kidney disease; N18.9 Chronic kidney disease, unspecified; F41.9 Anxiety disorder, unspecified; F32.A Depression, unspecified; E78.5 Hyperlipidemia, unspecified; E11.649 Type 2 diabetes mellitus with hypoglycemia without coma; G89.29 Other chronic pain; D73.5 Infarction of spleen; R62.7 Adult failure to thrive; H53.16 Psychophysical visual disturbances; Z95.818 Presence of other cardiac implants and grafts; Z86.73 Personal history of transient ischemic attack (TIA), and cerebral infarction without residual deficits; Z85.3 Personal history of malignant neoplasm of breast; Z74.01 Bed confinement status; Z92.3 Personal history of irradiation; Z92.21 Personal history of antineoplastic chemotherapy; Z79.899 Other long term (current) drug therapy
CPT/HCPCS: 88305; 36415; 49083; 74177; 80053; 80076; 82042; 82105; 82150; 82378; 82962; 82977; 83036; 83615; 84157; 85025; 86300; 86301; 87015; 87070; 87205; 88112; 89051; 93005; 99285; Q9967